=== PATIENT | female | born 1995 ===

== ENCOUNTER 2022-01-25 08:05 | Day surgery (SDC) | payer OTHER | END 2022-01-25 15:00 | disposition home or self-care (01) | LOC: CIR.AMB 08:05 | PROVIDERS: ATTEND Otolaryngology Otology & Neurotology | DX: H66.92 Otitis media, unspecified, left ear (principal); H72.92 Unspecified perforation of tympanic membrane, left ear; Z20.822 Contact with and (suspected) exposure to COVID-19; H74.12 Adhesive left middle ear disease; H72.02 Central perforation of tympanic membrane, left ear ==